=== PATIENT | male | born 1965 | race African-American/Black ===

== ENCOUNTER 2016-08-02 10:27 | Outpatient (CLI) | payer OTHER ==
[2016-08-02] MEDS ORDERED: GADOPENTETATE DIMEGLUMINE 5 ML VIAL IVP ONE (11:55)
[2016-08-02] MEDS: IOTHALAMATE MEGLUMINE 50 ML VIAL IVP ONE (11:56)
[2016-08-02] MEDS: BUFFERED LIDOCAINE 10 ML SYRINGE IU ONE (11:57)
[2016-08-02] MEDS: LIDOCAINE 1% 50 ML MDV SUBQ ONE (12:00)
[2016-08-02] MEDS: GADOPENTETATE DIMEGLUMINE 5 ML VIAL IVP ONE (12:01)
--- NOTE | 2016-08-02 16:03 | XRAY Report ---
FLUOROSCOPICALLY GUIDED LEFT SHOULDER INJECTION FOR MR ARTHROGRAM: 08/02/2016 CLINICAL INDICATION: Left shoulder pain. FINDINGS: Following obtaining informed consent, the patient's left shoulder was prepped and draped i n the usual sterile fashion. The skin and soft tissues were anesthetized with lidocaine. Following co nfirmation of needle positioning, a combination of Iodinated contrast, dilute gadolinium, and lidocai ne was injected intraarticularly. The patient tolerated the procedure well. No immediate complication s. Spot image does demonstrate some anterior contrast extravasation, but intraarticular contrast is s een. IMPRESSION: SUCCESSFUL LEFT SHOULDER INJECTION FOR MR ARTHROGRAM. FLUOROSCOPY TIME: 1 MINUTE 6 SECONDS; 1 SPOT IMAGE OBTAINED. JOB #: [id number] EXT JOB #:[id number]
--- NOTE | 2016-08-02 16:38 | MRI Report ---
EXAM: LEFT SHOULDER MRI ARTHROGRAM WITH CONTRAST EXAM DATE: 08/02/2016 12:15 PM. CLINICAL HISTORY: Chronic left shoulder pain. COMPARISON: None. TECHNIQUE: Multiplanar, multisequence T1-weighted and fluid-sensitive sequences of the shoulder after an arthrographic injection of dilute gadolinium, dictated under a separate exam. Other: None. FINDINGS: Acromioclavicular Region: The acromion is type II. Mild acromioclavicular joint osteoarthritis. The c oracoacromial and coracoclavicular ligaments are intact. Trace amount of fluid which does not contain contrast within the subacromial bursa. Glenohumeral Region: Slight posterior superior subluxation of the humeral head relative to the glenoi d. No loose bodies. The articular cartilage is unremarkable. The glenohumeral ligaments and joint cap jacqueline are unremarkable. Bone Marrow: No fracture, marrow edema or bone lesions. Labrum: There is a probable sub-labral foramen variant at the anterior superior aspect of the labrum. Otherwise, the labrum is intact. Biceps Tendon: The long head of the biceps tendon and biceps toni are intact. Musculature/Rotator Cuff: Focal calcific tendinosis of the supraspinatus tendon. The infraspinatus an d teres minor tendons are normal. There is contrast within the subscapularis tendon and muscle tendon unit which is probably related to the injection procedure. There is a possible small 6 x 4 mm low-gr marcial partial-thickness tear at the distal end of the subscapularis tendon. Grade 1 fatty atrophy of th e infraspinatus muscle. Other: The subcutaneous tissues are unremarkable. IMPRESSION: 1. Mild acromioclavicular joint osteoarthritis. 2. Slight posterior superior subluxation of the humeral head relative to the glenoid. 3. No labral tear. 4. Focal calcific tendinosis of the supraspinatus tendon. Possible small low-grade partial thickness tear at the distal end of the subscapularis tendon. No full-thickness rotator cuff tear. 5. Grade 1 fatty atrophy of the infraspinatus muscle. [facility] MUSCULOSKELETAL RADIOLOGY SECTION Referring Provider Line: [phone] SITE ID: [id number]
== END 2016-08-02 10:28 | disposition home or self-care (01) ==
LOC: DI 10:27
PROVIDERS: ATTEND Physician Assistant
DX: M19.012 Primary osteoarthritis, left shoulder (principal); S43.022A Posterior subluxation of left humerus, initial encounter; M62.532 Muscle wasting and atrophy, not elsewhere classified, left forearm
CPT/HCPCS: 23350; 73222; 77002; Q9961

== ENCOUNTER 2020-03-11 10:00 | Outpatient (CLI) | payer OTHER ==
--- NOTE | 2020-03-11 10:49 | SLEEP CARE CONSULTATION ---
Information from patient questionnaire entered by Cate Williamson. I have reviewed and concur with the information entered by Cate Williamson. This document represents the service I personally performed and the decisions made by me, Kajal Mccauley ARNP. History of Present Illness Service Date and Time: 03/11/2020 1000 Reason for Visit: New patient Chief Complaint: reports: Unrefreshed sleep (sometimes), Snoring, Excessive daytime sleepiness, Observed pauses in breathing, Fatigue. denies: Frequent awakenings at night Date of Onset: over 30 plus years Usual bedtime: 11:30 pm Time it takes to fall asleep: 5-10 minutes Snores at night: Yes Observed to quit breathing while asleep: Yes Sleeps alone due to snoring: Yes Number of times waking at night: 1 Reasons for waking at night: reports: Choking (only when on his back which is rare), Snoring, Bathroom. denies: Gasping for air Toss, Turn, or Twitch while sleeping: No Recalls having dreams: Yes Usually gets out of bed at: 7 am Feels refreshed in the morning: Yes (sometimes) Morning headache: No Sleepy or fatigued during the day: Yes Ever fallen asleep while driving: No Takes day naps: Yes (3-4 times a week for an hour) Dreams during day naps: Yes Prior sleep studies: No Additional HPI information: I had the pleasure of seeing DESIRAE RODAS today regarding the possibility of him having a sleep disorder. His current complaints are snoring, excessive daytime sleepiness and fatigue. He states he has snored for a long time but he has noticed that his snoring is worse more in the last few years and he is having more fatigue and sleepiness during the day than he has is the past. - Parasomnia Symptoms Ever been unable to move upon waking from sleep: No Walks in sleep: No Talks in sleep: No Ever acted out dreams in sleep: No Ever felt weak in the knees when startled or emotional: No Bothered by creepy, crawly, restless sensations in legs: No Problems with memory or concentration: Yes (memory; some forgetfulness) Subjective Initial [place] Sleepiness Scale score: 11 (in 2020) Past Medical History Past Medical History: reports: Hypertension, Diabetes, Gout. 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 Patient is and lives in [place]. Have you smoked in the past 12 months: No Alcohol use: Yes Alcohol amount and frequency: 5 beers once a week Caffeine use: Yes Caffeine amount and frequency: everyday; 2 cups of tea Family History Family history of sleep disordered breathing: Yes Family Hx Sleep Apnea: Father: Snoring, Sibling: Snoring Allergies and Home Medications Drug allergies reviewed: Yes (NKDA) Home medication list reviewed: Yes Allergy and home medication list: Lisinopril/HCTZ 20/12.5 mg Simvastatin 20 mg Review of Systems Weight gain over past 5 years: 31 Weight loss over past 5 years: 44 Cardiovascular: reports: high blood pressure Gastrointestinal: denies: heartburn Neurological: denies: headaches, seizure Ear/Nose/Throat: reports: nasal congestion, injury to nose, wisdom teeth removed. denies: dry mouth/throat, tonsillectomy Endocrine: reports: sluggishness Immunologic: denies: allergies to food or environment Physical Exam Blood Pressure: 158/98 (did not take BP medications last night) Cuff size: long Heart Rate: 63 O2 Saturation: 100 Height: 5 ft 5 in Weight: 249 lb Body Mass Index: 41.4 BMI Classification: Morbidly Obese Neck circumference: 19.5 (inches) HEENT: No craniofacial malformation Nostrils: patent to airflow Mouth and throat: narrow oropharynx Uvula visualization: 50% Mallampati Class II Tongue: enlarged in size with teeth godoy on lateral edges Tonsils: 3+/kissing Chin and jaw: normal size and position Neck: normal w/o lymphadenopathy or thyromegaly Heart: regular rate and rhythm Lungs: clear bilaterally Impression and Plan 1. Suspected Obstructive Sleep Apnea-Hypopnea Syndrome, as suggested by a history of loud and irregular snoring, observed cessation of breath while asleep, gasping or choking in sleep, unrefreshed sleep, cognitive impairment, and excessive daytime sleepiness. I reviewed with the patient that a narrow oropharynx and obesity are common predisposing factors for obstructive sleep apnea-hypopnea syndrome. I recommend proceeding to polysomnography to confirm the diagnosis and to assess severity. If the patient has significant sleep disordered breathing, a manual CPAP titration study will also be performed to find the optimal treatment pressure. I informed the patient of what the sleep studies involve and after some discussion, obtained agreement to proceed. The pathophysiology of obstructive sleep apnea-hypopnea syndrome was discussed with the patient and health risks of cardiovascular and cerebrovascular disease if not treated. AASM brochure for obstructive sleep apnea-hypopnea syndrome given and reviewed. Risks of drowsy driving discussed in detail and patient advised to avoid long distance driving and to door puller at the first sign of drowsiness. Patient agreed to plan. * Schedule polysomnography +- manual CPAP titration study and return in 1-2 weeks after the study to discuss result and initiate therapy. * Avoid long distance driving or driving when feeling sleepy. * Avoid alcohol, sedative and muscle relaxant around bedtime. * Attempt to lose weight. * Review instructions provided by trained office staff on how to prepare for the sleep study. * Return for follow-up after sleep study completed. Counseling Topics: Weight loss health impact Visit Type: In Office Time Spent with Patient (minutes): 30 Provider Statement: I spent 100% of the Face to Face Visit with the patient with greater than 50% spent counseling the patient and coordination of care.
[2020-03-11 10:50] VITALS: BP 158/98
== END 2020-03-11 10:01 | disposition home or self-care (01) ==
LOC: SC 10:00
PROVIDERS: ATTEND Nurse Practitioner Family
DX: G47.10 Hypersomnia, unspecified (principal); R41.89 Other symptoms and signs involving cognitive functions and awareness; G47.8 Other sleep disorders; R06.81 Apnea, not elsewhere classified; R06.83 Snoring; E66.01 Morbid (severe) obesity due to excess calories; Z68.41 Body mass index [BMI] 40.0-44.9, adult
CPT/HCPCS: 99203; 99212

== ENCOUNTER 2020-03-26 09:54 | Outpatient (CLI) | payer OTHER | END 2020-03-26 09:55 | disposition home or self-care (01) | LOC: SC 09:54 | PROVIDERS: ATTEND Nurse Practitioner Family | DX: G47.33 Obstructive sleep apnea (adult) (pediatric) (principal); R09.02 Hypoxemia; E66.9 Obesity, unspecified | CPT/HCPCS: 95806 ==

== ENCOUNTER 2020-04-01 10:03 | Outpatient (CLI) | payer OTHER ==
--- NOTE | 2020-04-01 10:35 | SLEEP CARE CONSULTATION ---
Information from patient questionnaire entered by Cate Williamson. I have reviewed and concur with the information entered by Cate Williamson. This document represents the service I personally performed and the decisions made by , Kajal Mccauley ARNP. History of Present Illness Service Date and Time: 04/01/2020 1003 Initial [place] Sleepiness Scale score: 11 (in 2020) Current [place] Sleepiness Scale score: 16 Additional HPI information: DESIRAE RODAS returns for follow up and results of the recently performed home sleep study. I explained the pathophysiology behind obstructive sleep apnea. We then spent quite a bit of time discussing different treatment options. For mild obstructive sleep apnea, surgery and oral appliance are alternatives to nasal CPAP therapy but in moderate or severe cases, nasal CPAP is the most effective and reliable treatment. Because apnea is primarily in supine position, then positional management therapy could be effective. Methods discussed such as positioning with pillows, using a T-shirt with tennis balls in the back, and shown commercial products that have a pillow format on back to prevent supine sleep. I reviewed the impact of weight changes on sleep apnea and strongly recommended losing weight. After some discussion, the patient opted to go with the nasal CPAP therapy. Nasal autoCPAP set at 4-15 cmH20 will be ordered with rationale explained. A manual titration study will be ordered if unable to find optimal pressure with office adjustments. I explained how CPAP machine works with sample devices Respironics Dreamstation and ResBookMyShow [id number] and what to expect when using the machine. Using CPAP every night in order to get used to it was emphasized. Patient advised to put CPAP mask on before getting into bed so as not to fall asleep without CPAP. To assist acclimation to CPAP use, it could also be used for a short time during day while reading or watching TV. The patient was instructed to call the CPAP supplier to discuss any mechanical problem that may occur. If the mask given is uncomfortable or is difficult to keep on through the night even with adjustment, contact the CPAP supplier as many will replace with another mask style if notified before 30 days. If snoring or perceives is not getting enough air or too much air from the machine, notify this office. [facility] patient education PAP tips reviewed and given to patient. Patient counseled not drink alcohol less than 4 hours before bedtime as it can increase snoring and apnea. Patient was cautioned about risks of drowsy driving until sleepiness symptoms resolve. Sleep Study - Results Type of Sleep Study: Home sleep study Prior sleep studies: No Polysomnography/Home Sleep Study results: Physician Impression: The quality of the study is good. The length of the study is adequate (> 240 minutes). Please also see the tabulated and graphic data. 1. Obstructive Sleep Apnea-Hypopnea (ICD-10 G47.33), severe, with an AHI of 31.1 /hr and maryam SaO2 of 71%. During the study, the patient had 63 apneas (63 obstructive, 0 central, 0 mixed) and 93 hypopneas. The longest episode lasted 63.5 seconds. The respiratory events occurred independently of body position(supine AHI was 26.9 and non-supine, 32.78). 2. Hypoxemia (ICD-10 R09.02), moderate, with the lowest oxygen saturation of 71 % and 48.0 minutes with SaO2 under 90%. Baseline oxygen saturation was normal (Average oxygen saturation was 92%). Allergies and Home Medications Drug allergies reviewed: Yes (NKDA) Home medication list reviewed: Yes (no changes) Review of Systems Review of systems same as previous: Yes (no changes) Physical Exam Heart Rate: 70 O2 Saturation: 96 Height: 5 ft 5 in Weight: 237 lb Body Mass Index: 39.4 BMI Classification: Obese Impression and Plan 1. Obstructive Sleep Apnea-Hypopnea Syndrome, severe, with lowest oxygen saturation of 71%. Obviously this is the cause of the patients symptoms of unrefreshed sleep, and excessive daytime sleepiness. Positive pressure therapy could benefit hypertension, diabetes and gout. As mentioned above, the patient will be started on nasal autoCPAP therapy with pressure set at 4-20 cmH2O. A manual titration study will be completed if unable to find optimal treatment pressure with office adjustments. Compliance guidelines also reviewed. A copy of compliance guidelines will be given for reference at check out. 2. Hypoxemia, moderate. His lowest oxygen saturation was 71% and he spent 48.0 minutes with the SaO2 under 90%. His baseline oxygen saturation was normal with an average oxygen saturation at 92%. * Nasal auto CPAP therapy, pressure at 4-20 cm H2O. * Attempt to lose weight. * Avoid alcohol consumption near bedtime. * Avoid non-supine sleep until using CPAP. * The patient is again cautioned about driving until sleepiness completely resolves. * Return one month after CPAP obtained. I will assess response to therapy and compliance at that time. Counseling Topics: Spare mask, Weight loss health impact Visit Type: In Office Time Spent with Patient (minutes): 20 Provider Statement: I spent 100% of the Face to Face Visit with the patient with greater than 50% spent counseling the patient and coordination of care.
== END 2020-04-01 10:04 | disposition home or self-care (01) ==
LOC: SC 10:03
PROVIDERS: ATTEND Nurse Practitioner Family
DX: G47.33 Obstructive sleep apnea (adult) (pediatric) (principal); R09.02 Hypoxemia; E66.9 Obesity, unspecified; Z68.39 Body mass index [BMI] 39.0-39.9, adult
CPT/HCPCS: 99212; 99213

== ENCOUNTER 2020-05-18 13:11 | Outpatient (CLI) | payer OTHER ==
--- NOTE | 2020-05-18 13:42 | SLEEP CARE CONSULTATION ---
Information from patient questionnaire entered by Meliton Bender. I have reviewed and concur with the information entered by Meliton Bender. This document represents the service I personally performed and the decisions made by , Kajal Mccauley ARNP. History of Present Illness Service Date and Time: 05/18/2020 1311 Previous diagnosis: Severe, Obstructive Sleep Apnea-Hypopnea Syndrome AHI: 31.1 Reason for follow up: first compliance (04/14) Equipment type: CPAP Equipment obtained from: [employer] (got initial supplies) Mask style: Nasal Backup mask available: No (will keep old mask when replaced) Last cushion change: 1 months Prior sleep studies: No Year and Where: 2020 [facility] Type of Sleep Study: Home sleep study HPI additional information: DESIRAE RODAS was diagnosed to have severe, AHI 31.1, obstructive sleep apnea- hypopnea syndrome and returned today for CPAP therapy first compliance follow- up. CPAP Compliance Data - Data Reviewed with Patient Average duration of nightly device use: 4 h 55 min Compliance rate %: 97 Current pressure setting (cmH2O): 4-20 Average residual AHI: 0.1 Central apnea: 0.0 Obstructive apnea: 0.1 Subjective Missed days of use due to: reports: travel Patient concerns: denies: aerophagia, mask discomfort, air blowing in eyes, mask leak noise, condensation in mask/hose, nasal congestion, dry mouth, nose, throat, epistaxis, other Observed to snore while using device: No Current pressure setting perceived as: comfortable On therapy, patient: reports: sleeping better, awakening more refreshed, being more awake and alert during the day, more rested overall. denies: drowsiness while driving Initial [place] Sleepiness Scale score: 11 (in 2020) Current [place] Sleepiness Scale score: 10 Allergies and Home Medications Home medication list reviewed: Yes (no changes) Review of Systems Review of systems same as previous: Yes (no changes) Physical Exam Heart Rate: 65 O2 Saturation: 97 Height: 5 ft 5 in Weight: 226 lb Body Mass Index: 37.5 BMI Classification: Obese Impression and Plan 1. Obstructive Sleep Apnea-Hypopnea Syndrome, severe, with good treatment compliance and good apnea control. On CPAP therapy, the patient has better sleep quality and is more rested overall. He feels he has more energy during the day and has more energy even after exercising in the morning. I will adjust his pressure to reflect those he is using to [id number]. He was encouraged to lose weight to help reduce apnea and improve his overall health. He voiced understanding and agreement with plan. Patient's apnea severity and rationale for treatment to reduce apnea, improve sleep quality and reduce cardiovascular and cerebrovascular events was reviewed. I also reviewed the benefit of consistent device use of CPAP for hypertension, diabetes, and gout. * Change auto CPAP pressure to 6-12 cmH2O * Notify me if snoring with mask or feeling that the pressure is too much or too little * Attempt to lose weight * Call this office if any problems using CPAP * Return for follow up in 1-2 months, or sooner if concerns arise Counseling Topics: Spare mask, Weight loss health impact Visit Type: In Office Time Spent with Patient (minutes): 21 Provider Statement: I spent 100% of the Face to Face Visit with the patient with greater than 50% spent counseling the patient and coordination of care.
== END 2020-05-18 13:12 | disposition home or self-care (01) ==
LOC: SC 13:11
PROVIDERS: ATTEND Nurse Practitioner Family
DX: G47.33 Obstructive sleep apnea (adult) (pediatric) (principal); E66.9 Obesity, unspecified; Z68.37 Body mass index [BMI] 37.0-37.9, adult
CPT/HCPCS: 99212; 99213

== ENCOUNTER 2020-06-18 13:06 | Outpatient (CLI) | payer OTHER ==
--- NOTE | 2020-06-18 13:35 | SLEEP CARE CONSULTATION ---
Information from patient questionnaire entered by Meliton Bender. I have reviewed and concur with the information entered by Meliton Bender. This document represents the service I personally performed and the decisions made by me, Kajal Mccauley ARNP. History of Present Illness Service Date and Time: 06/18/2020 1306 Previous diagnosis: Severe, Obstructive Sleep Apnea-Hypopnea Syndrome AHI: 31.1 Reason for follow up: one month (followup - pressure change) Equipment type: CPAP Equipment obtained from: [employer] (getting supplies as needed) Mask style: Nasal (over the nose) Backup mask available: Yes (other mask) Last cushion change: 2 weeks ago Prior sleep studies: No Year and Where: 2020 [facility] Type of Sleep Study: Home sleep study HPI additional information: DESIRAE RODAS was diagnosed to have severe, AHI 31.1, obstructive sleep apnea- hypopnea syndrome and returned today for CPAP therapy one month pressure change follow-up. CPAP Compliance Data - Data Reviewed with Patient Average duration of nightly device use: 4 h 27 min Compliance rate %: 90 Current pressure setting (cmH2O): 6-12 Average residual AHI: 0.1 Average large leak: 10.2 L/min Compliance data discussion: He states after 4 or so hours he has to get up for the bathroom and then cannot go back to sleep with mask on. He will not continue wearing it for rest of sleep. Subjective Missed days of use due to: reports: travel Patient concerns: denies: aerophagia, mask discomfort, air blowing in eyes, mask leak noise, condensation in mask/hose, nasal congestion, dry mouth, nose, throat, epistaxis, other Observed to snore while using device: No Current pressure setting perceived as: comfortable On therapy, patient: reports: sleeping better, awakening more refreshed, being more awake and alert during the day, more rested overall. denies: drowsiness while driving Initial [place] Sleepiness Scale score: 11 (in 2020) Current [place] Sleepiness Scale score: 7 Allergies and Home Medications Home medication list reviewed: Yes (no new meds) Review of Systems Review of systems same as previous: Yes (no changes) Physical Exam Heart Rate: 73 O2 Saturation: 97 Height: 5 ft 5 in Weight: 223 lb Body Mass Index: 37.0 BMI Classification: Obese Impression and Plan 1. Obstructive Sleep Apnea-Hypopnea Syndrome, severe, with good treatment compliance and excellent apnea control. On CPAP therapy, the patient has better sleep quality and is more rested overall. He has significant improvement of his sleep apnea and is very satisfied with his treatment. He has no complaints of dry mouth or nose, skin irritation, aerophagia, or mask discomfort. 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 I will have him follow up when her gets back to [facility]. He voiced understanding and agreement with plan. Patient's apnea severity and rationale for treatment to reduce apnea, improve sleep quality and reduce cardiovascular and cerebrovascular events was reviewed. I also reviewed the benefit of consistent device use of CPAP for hypertension and diabetes. * Continue auto CPAP pressure at 6-12 cmH2O * Notify me if snoring with mask or feeling that the pressure is too much or too little * Attempt to lose weight * Call this office if any problems using CPAP * Return for follow up in 6 months, or sooner if concerns arise Counseling Topics: Spare mask, Weight loss health impact Visit Type: In Office Time Spent with Patient (minutes): 20 Provider Statement: I spent 100% of the Face to Face Visit with the patient with greater than 50% spent counseling the patient and coordination of care.
== END 2020-06-18 13:07 | disposition home or self-care (01) ==
LOC: SC 13:06
PROVIDERS: ATTEND Nurse Practitioner Family
DX: G47.33 Obstructive sleep apnea (adult) (pediatric) (principal); E66.9 Obesity, unspecified; Z68.37 Body mass index [BMI] 37.0-37.9, adult
CPT/HCPCS: 99212; 99213

== ENCOUNTER 2020-11-03 15:20 | Outpatient (CLI) | payer OTHER ==
--- NOTE | 2020-11-03 15:47 | SLEEP CARE CONSULTATION ---
Information from patient questionnaire entered by Cate Williamson. I have reviewed and concur with the information entered by Cate Williamson. This document represents the service I personally performed and the decisions made by , Kajal Mccauley ARNP. History of Present Illness Service Date and Time: 11/03/2020 1520 Previous diagnosis: Severe, Obstructive Sleep Apnea-Hypopnea Syndrome AHI: 31.1 (in 2020) Reason for follow up: six month Equipment type: CPAP Equipment obtained from: [employer] (getting supplies as needed) Mask style: Nasal (over the nose) Backup mask available: Yes (old mask) Last cushion change: alternates 2 with cleaning Prior sleep studies: Yes Year and Where: 2020 - [facility] Type of Sleep Study: Home sleep study HPI additional information: DESIRAE RODAS was diagnosed to have severe, AHI 31.1, obstructive sleep apnea- hypopnea syndrome and returned today for CPAP therapy six month follow-up. CPAP Compliance Data - Data Reviewed with Patient Average duration of nightly device use: 4 hr 25 min Compliance rate %: 81 (180 days) Current pressure setting (cmH2O): 6-12 Humidity settin Average residual AHI: 0.1 Subjective Missed days of use due to: reports: travel Patient concerns: reports: condensation in mask/hose (once in while). denies: aerophagia, mask discomfort, air blowing in eyes, mask leak noise, nasal congestion, dry mouth, nose, throat, epistaxis, other Observed to snore while using device: No Current pressure setting perceived as: comfortable On therapy, patient: reports: sleeping better, awakening more refreshed, being more awake and alert during the day, more rested overall. denies: drowsiness while driving Initial Jupiter Sleepiness Scale score: 11 (in 2020) Current Jupiter Sleepiness Scale score: 5 Allergies and Home Medications Home medication list reviewed: Yes (no changes) Review of Systems Review of systems same as previous: Yes (no changes) Physical Exam Heart Rate: 63 O2 Saturation: 98 Height: 5 ft 5 in Weight: 232 lb Weight change since last visit: 9 pound gain Body Mass Index: 38.6 BMI Classification: Obese Impression and Plan 1. Obstructive Sleep Apnea-Hypopnea Syndrome, severe, with good treatment compliance and excellent apnea control. On CPAP therapy, the patient has better sleep quality and is more rested overall. Patient is satisfied with current CPAP therapy and pressure is comfortable. He is compliant with his CPAP and getting good results. Patient had no complaints or concerns with CPAP mask use. He did get a little condensation once in the mask and we discussed ways to eliminate this if it should become a regular problem by adjusting his heated hose or humidity settings. He voiced understanding. Patient has gained some weight since his last visit 6 months ago and he states he will try to start losing weight again. He is sure he will lose weight when [place]. Patient's apnea severity and rationale for treatment to reduce apnea, improve sleep quality and reduce cardiovascular and cerebrovascular events was reviewed. I also reviewed the benefit of consistent device use of CPAP for hypertension and diabetes. * Continue auto CPAP pressure at 6-12 cmH2O * Notify me if snoring with mask or feeling that the pressure is too much or too little * Attempt to lose weight * Call this office if any problems using CPAP * Return for follow up in 1 year, or sooner if concerns arise Counseling Topics: Spare mask, Weight loss health impact Visit Type: In Office Time Spent with Patient (minutes): 12 Provider Statement: I spent 100% of the Face to Face Visit with the patient with greater than 50% spent counseling the patient and coordination of care.
== END 2020-11-03 15:21 | disposition home or self-care (01) ==
LOC: SC 15:20
PROVIDERS: ATTEND Nurse Practitioner Family
DX: G47.33 Obstructive sleep apnea (adult) (pediatric) (principal); E66.9 Obesity, unspecified; Z68.38 Body mass index [BMI] 38.0-38.9, adult
CPT/HCPCS: 99212

== ENCOUNTER 2021-03-11 12:23 | Emergency (ER) | payer OTHER ==
[2021-03-11] MEDS ORDERED: COLCHICINE 0.6 MG TABLET PO STA (12:55)
[2021-03-11] MEDS ORDERED: predniSONE 20 MG TABLET PO STA (12:55)
--- NOTE | 2021-03-11 12:56 | ED Physician Documentation ---
History of Present Illness - Stated complaint Stated Complaint: PAIN/ SWELLING LEFT ANKLE/FOOT - Chief complaint Chief Complaint: Ext Problem - History obtained from History obtained from: Patient - History of Present Illness Timing: How many weeks ago (1) Pain level max: 5 Pain level now: 3 - Additonal information Additional information: 56-year-old male with a longstanding history of gout presents to the emergency department with swelling and pain to the left ankle. Started about a week ago, has not resolved with ibuprofen. Does not recall any injury. No redness. No fevers. No chills. Worse with walking, better with rest. Review of Systems Constitutional: denies: Fever, Chills GI: denies: Vomiting, Diarrhea Skin: denies: Rash Musculoskeletal: denies: Neck pain, Back pain PD PAST MEDICAL HISTORY - Past Medical History Past Medical History: Yes Other Past Medical History: gout - Present Medications Home Medications: Ambulatory Orders Medication Instructions Recorded Confirmed Meloxicam [Mobic] 15 mg PO DAILY PRN #20 tablet 03/11/21 predniSONE [Deltasone] 10 mg PO [id number] #42 tab 03/11/21 - Allergies Allergies/Adverse Reactions: Allergies Allergy/AdvReac Type Severity Reaction Status Date / Time No Known Drug Allergies Allergy Verified 03/11/21 12:40 - Living Situation Living Arrangement: reports: At home - Social History Does the pt have substance abuse?: No - Family History Family history: reports: Non contributory PD ED PE NORMAL - Vitals Vital signs reviewed: Yes - General General: Alert and oriented X 3, No acute distress, Well developed/nourished - HEENT HEENT: Moist mucous membranes - Neck Neck: Supple, no meningeal sign - Cardiac Cardiac: RRR, Strong equal pulses - Respiratory Respiratory: No respiratory distress, Clear bilaterally - Derm Derm: Warm and dry - Extremities Extremities: Other (Moderate soft tissue swelling to the left ankle. No bony tenderness. Full range of motion of the ankle, but there is some pain. Neurovascularly intact. Brisk cap refill) - Neuro Neuro: Alert and oriented X 3 - Psych Psych: Normal mood, Normal affect Results - Vitals Vitals: Vital Signs - 24 hr 03/11/21 03/11/21 12:35 13:40 Temperature 36.2 C L 37.2 C Heart Rate 69 80 Respiratory 16 18 Rate Blood Pressure 195/92 H 175/89 H O2 Saturation 100 99 Oxygen O2 Source Room air - Rads (name of study) Left ankle x-ray Radiology: Final report received, EMP read contemporaneously, See rad report (Soft tissue swelling without fracture) PD MEDICAL DECISION MAKING - ED course Complexity details: considered differential, d/w patient ED course: 56-year-old male with what appears to be gout of the left ankle, consistent with his prior history. Given prednisone and colchicine. We will continue the prednisone, follow-up with his doctor for further care. Patient counseled regarding signs and symptoms for which I believe and urgent re-evaluation would be necessary. Patient with good understanding of and agreement to plan and is comfortable going home at this time This document was made in part using voice recognition software. While efforts are made to proofread this document, sound alike and grammatical errors may occur. No evidence of septic joint. Departure - Departure Disposition: 01 Home, Self Care Clinical Impression: Gout attack Qualifiers: Gout site: ankle Gout etiology: unspecified cause Laterality: left Qualified Code(s): M10.9 - Gout, unspecified Condition: Good Instructions: ED Arthritis Gout, ED Diet Gout Follow-Up: FRANCISCO DENISE MD [Primary Care Provider] - Prescriptions: predniSONE [Deltasone] 10 mg PO [id number] #42 tab Meloxicam [Mobic] 15 mg PO DAILY PRN #20 tablet PRN Reason: pain Comments: Your x-ray does not show any acute abnormalities. Please follow-up with your doctor for further care. Return if you worsen. Use the medications as prescribed. Your prescriptions were sent to the [facility] pharmacy. Discharge Date/Time: 03/11/21 13:44
--- NOTE | 2021-03-11 13:22 | XRAY Report ---
PROCEDURE: Ankle 3 View LT INDICATIONS: ankle pain, swelling, no known injury, h/o gout TECHNIQUE: 3 views of the ankle were acquired. COMPARISON: None. FINDINGS: Bones: No fractures or dislocations. Ankle mortise is normally aligned. No suspicious bony lesions . No osseous erosion is identified. Tiny posterior calcaneal enthesophyte. Minimal degenerative webber e in the midfoot. Soft tissues: No tibiotalar joint effusion. Achilles tendon appears normal. Ankle swelling. IMPRESSION: No acute osseous abnormality. Soft tissue ankle swelling. If clinically indicated follow-up radiographs in 10-14 days could be performed. Reviewed by: Joe Solis MD on 03/11/2021 1:21 PM [facility] Approved by: Joe Solis MD on 03/11/2021 1:21 PM [facility] Station ID: [id number]
[2021-03-11 13:43] VITALS: BP 175/89
== END 2021-03-11 13:44 | disposition home or self-care (01) ==
LOC: ED 12:23
DX: M10.9 Gout, unspecified (principal)
CPT/HCPCS: 73610; 99283; 99284; A9270; J7512